=== PATIENT | male | born 1955 | race Caucasian/White ===

== ENCOUNTER 2021-12-24 06:29 | Day surgery (SDC) | payer MEDICARE, OTHER ==
[~2021-12-24 06:29] MED LIST: Lactated Ringers 1,000 ML IV SCH
[2021-12-24] MEDS ORDERED: Propofol 200 MG/20 ML SDV ONE (07:30)
[2021-12-24] MEDS ORDERED: fentaNYL 100 MCG/2 ML SDV ONE ×2 (07:31→08:06)
[2021-12-24] MEDS ORDERED: Lactated Ringers 1,000 ML IV SCH (08:30)
[2021-12-24 08:54] VITALS: BP 118/70; PULSE 67
== END 2021-12-24 09:01 | disposition home or self-care (01) ==
LOC: MW.SDS 06:29
PROVIDERS: ATTEND Surgery
DX: Z12.11 Encounter for screening for malignant neoplasm of colon (principal); K57.30 Diverticulosis of large intestine without perforation or abscess without bleeding; I10 Essential (primary) hypertension; J44.9 Chronic obstructive pulmonary disease, unspecified; Z86.16 Personal history of COVID-19; K21.9 Gastro-esophageal reflux disease without esophagitis; Z88.8 Allergy status to other drugs, medicaments and biological substances; Z79.899 Other long term (current) drug therapy; Z98.890 Other specified postprocedural states; Z87.891 Personal history of nicotine dependence
CPT/HCPCS: G0121; J2704; J3010; J7120; 00812